=== PATIENT | male | born 1980 | race American Indian/Alaskan Native ===

== ENCOUNTER 2017-09-16 10:17 | Emergency (ER) | payer OTHER, BC ==
[2017-09-16 10:29] VITALS: BP 127/93; PULSE 86; TEMP 97.9; O2SAT 100
[2017-09-16 10:30] VITALS: BMI 36.1
--- NOTE | 2017-09-16 11:02 | ED PDOC ---
Lower Extremity Pain/Injury Time Seen by Provider: 09/16/17 10:27 Chief Complaint (Nursing): Lower Extremity Problem/Injury Chief Complaint (Provider): Left foot and knee pain, twisted History Per: Patient History/Exam Limitations: no limitations Onset/Duration Of Symptoms: Mins Current Symptoms Are (Timing): Still Present Additional Complaint(s): 37 yo male with no medical problems presents with left ankle and knee pain. 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 Pt states the steps on train in the [place] station [place] even with the platform. Pt states he believes he missed a step resulting in his twisting the left knee and ankle. Pt reports pain in knee with bending and pain in ankle with weight bearing. Past Medical History Reviewed: Historical Data, Nursing Documentation, Vital Signs Vital Signs: Last Vital Signs Temp 97.9 F 09/16/17 10:28 Pulse 86 09/16/17 10:28 Resp BP 127/93 H 09/16/17 10:28 Pulse Ox 100 09/16/17 10:28 - Medical History PMH: No Chronic Diseases - Surgical History Surgical History: No Surg Hx - Family History Family History: States: No Known Family Hx - Home Medications Home Medications: Ambulatory Orders Medication Instructions Recorded Ibuprofen [Motrin Tab] 800 mg PO Q6H PRN #20 tab 09/16/17 - Allergies Allergies/Adverse Reactions: Allergies Allergy/AdvReac Type Severity Reaction Status Date / Time No Known Allergies Allergy Verified 09/16/17 10:27 Review of Systems ROS Statement: Except As Marked, All Systems Reviewed And Found Negative Constitutional: Negative for: Fever, Chills Musculoskeletal: Positive for: Leg Pain, Foot Pain Skin: Negative for: Bruising Physical Exam - Reviewed Nursing Documentation Reviewed: Yes Vital Signs Reviewed: Yes - Physical Exam Appears: Positive for: Well, Non-toxic, No Acute Distress Head Exam: Positive for: ATRAUMATIC, NORMAL INSPECTION, NORMOCEPHALIC Skin: Positive for: Normal Color (No erythema, no ecchymosis ), Warm Eye Exam: Positive for: Normal appearance ENT: Positive for: Normal ENT Inspection Neck: Positive for: Normal Respiratory: Negative for: Accessory Muscle Use, Respiratory Distress Back: Positive for: Normal Inspection Extremity: Positive for: Normal ROM (Pain with left knee flexion), Tenderness ( Left knee non-tender, (+) tenderness inferior to the lateral malleolous on the left ). Negative for: Deformity, Swelling Neurologic/Psych: Positive for: Alert, Oriented - ECG O2 Sat by Pulse Oximetry: 100 Medical Decision Making Medical Decision Making: Knee XR and ankle XR - without acute fracture or dislocation. Disposition - Clinical Impression Clinical Impression: Knee sprain, Ankle sprain and strain - Patient ED Disposition Is Patient to be Admitted: No - Disposition Referrals: Non [facility] Provider, [Primary Care Provider] - Joe Wood III, MD [Staff Provider] - Disposition: Routine/Home Disposition Time: 11:57 Condition: GOOD Additional Instructions: Ice, elevation, motrin for pain. Prescriptions: Ibuprofen [Motrin Tab] 800 mg PO Q6H PRN #20 tab PRN Reason: Pain Instructions: Ankle Sprain, Knee Sprain (DC) Forms: [facility] ([place])
--- NOTE | 2017-09-16 11:18 | RAD ---
Date of service: [facility] 09/16/2017 PROCEDURE: Left Knee Radiographs. HISTORY: Pain. COMPARISON: None. FINDINGS: BONES: Normal. No fracture. JOINTS: Normal. No osteoarthritis. JOINT EFFUSION: There appears to be a small suprapatellar joint effusion OTHER FINDINGS: None. IMPRESSION: No evidence of acute displaced fracture nor dislocation. Small suprapatellar joint effusion
[2017-09-16 12:20] VITALS: RESP 20
--- NOTE | 2017-09-16 17:12 | RAD ---
Date of service: 09/16/2017 PROCEDURE: Left Foot Radiographs. HISTORY: Tenderness inferior to the lateral malleolus COMPARISON: None. FINDINGS: BONES: No evidence of acute displaced fracture nor dislocation. The there appears to be slight talar beaking. . JOINTS: Mild hallux valgus deformity with slight overgrowth of the head of the 1st metatarsal and mild DJD 1st MTP joint. SOFT TISSUES: Normal. OTHER FINDINGS: None. IMPRESSION: . No evidence of acute displaced fracture nor dislocation. Slight talar beaking.
== END 2017-09-16 12:28 | disposition home or self-care (01) ==
LOC: H.ER 10:17 → SUPCPDRO 10:17 → H.ER 12:28
DX: S83.92XA Sprain of unspecified site of left knee, initial encounter (principal); S93.402A Sprain of unspecified ligament of left ankle, initial encounter; S86.912A Strain of unspecified muscle(s) and tendon(s) at lower leg level, left leg, initial encounter; X50.1XXA Overexertion from prolonged static or awkward postures, initial encounter; Y92.522 Railway station as the place of occurrence of the external cause